=== PATIENT | female | born 1970 | race African-American/Black ===

== ENCOUNTER 2017-10-09 11:32 | Emergency (ER) | payer OTHER ==
[2017-10-09 11:46] VITALS: BP 134/79; PULSE 90; TEMP 98.3; BMI 29.7
[2017-10-09] MEDS ORDERED: DIPHTH,PERTUSS(ACELL),TET 0.5 ML DISP.SYRIN IM ONE (12:15)
[2017-10-09] MEDS ORDERED: IBUPROFEN 400 MG TABLET (FP) PO ONE ×2 (12:15→12:34)
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
[2017-10-09] MEDS ORDERED: SILVER SULFADIAZINE 1% TOP CREAM 50 GM JAR TP ONE (12:33)
[2017-10-10] MEDS ORDERED: SILVER SULFADIAZINE 1% TOP CREAM 50 GM JAR TP SCH (10:00)
== END 2017-10-09 13:52 | disposition home or self-care (01) ==
LOC: JER 11:32
PROC: 3E0234Z Introduction of Serum, Toxoid and Vaccine into Muscle, Percutaneous Approach (ICD-10-PCS; principal; 2017-10-09)
DX: T21.11XA Burn of first degree of chest wall, initial encounter (principal); X13.1XXA Other contact with steam and other hot vapors, initial encounter; Y93.89 Activity, other specified; Y92.009 Unspecified place in unspecified non-institutional (private) residence as the place of occurrence of the external cause
CPT/HCPCS: 90715; 99282-25

== ENCOUNTER 2017-10-11 12:10 | Emergency (ER) | payer OTHER ==
[2017-10-11 12:23] VITALS: BP 128/80; PULSE 80; TEMP 98.3; BMI 29.7
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
== END 2017-10-11 14:04 | disposition home or self-care (01) ==
LOC: JERFT 12:10
DX: T21.21XD Burn of second degree of chest wall, subsequent encounter (principal); T20.27XD Burn of second degree of neck, subsequent encounter; T20.2 Burn of second degree of head, face, and neck; T31.0 Burns involving less than 10% of body surface; X15.8XXD Contact with other hot household appliances, subsequent encounter
CPT/HCPCS: 99281-25